=== PATIENT | female | born 1955 | race Two or more races ===

== ENCOUNTER 2018-06-22 12:45 | Inpatient (IN) | payer OTHER ==
[~2018-06-22] VITALS: Ht 154.9 cm; Wt 68.0 kg
[2018-06-22] MEDS ORDERED: LOSARTAN-HCTZ1 EACH PO (15:18)
[2018-06-22] MEDS ORDERED: HUMALOG100 UNIT/1 (15:18)
[2018-06-22] MEDS ORDERED: ARIMIDEX PO (15:19)
[2018-07-09] MEDS ORDERED: PERCOCET 5-3251 EACH PO (18:22)
== END 2018-07-09 18:45 | disposition home or self-care (01) | DRG 329 ==
LOC: SURH 07-06 05:54 → O/R 07-06 05:54 → SURG 07-06 10:30 → SURH 07-06 15:51
PROVIDERS: ADMIT Surgery
PROC: 0D9W3ZZ Drainage of Peritoneum, Percutaneous Approach (ICD-10-PCS; 2018-07-06)
PROC: 0DTN4ZZ Resection of Sigmoid Colon, Percutaneous Endoscopic Approach (ICD-10-PCS; principal; 2018-07-06 10:30)
DX: K57.20 Diverticulitis of large intestine with perforation and abscess without bleeding (principal); K65.1 Peritoneal abscess; N32.1 Vesicointestinal fistula; E11.9 Type 2 diabetes mellitus without complications